=== PATIENT | male | born 1930 | race Caucasian/White ===

== ENCOUNTER 2016-10-24 10:44 | Day surgery (SDC) | payer MEDICARE, BC ==
[~2016-10-24 10:44] MED LIST: ACETAMINOPHEN 325 MG TABLET PO PRN; DEXTROSE 5%-0.5 NORMAL SALINE 1,000 ML IV PRN; MORPHINE SULFATE 2 MG/ML DISP.SYRIN IV PRN; MORPHINE SULFATE 4 MG/ML SYRG IV PRN; ONDANSETRON HCL/PF 2 MG/ML VIAL IV PRN; oxyCODONE HCL/ACETAMINOPHEN 1 TAB TABLET PO PRN
[2016-10-24] MEDS: RINGERS SOLUTION,LACTATED 1,000 ML IV PRN (11:30)
[2016-10-24] MEDS: LANOLIN/MIN OIL/PETROLAT,WHT 3.5 APPL TUBE EACHEYE ONE (12:58)
[2016-10-24] MEDS: ceFAZolin SODIUM 1 GM VIAL IV ONE (13:05)
[2016-10-24] MEDS: RINGERS SOLUTION,LACTATED 1,000 ML IV ONE (13:21)
[2016-10-24] MEDS: MUPIROCIN 22 APPL TUBE TP ONE (13:29)
[2016-10-24 15:09] VITALS: BP 159/75
== END 2016-10-24 10:45 | disposition home or self-care (01) ==
LOC: AMB 10:44 → EDSEX 10:44 → AMB 10:45
PROVIDERS: ATTEND Allergy & Immunology
PROC: 0JX Subcutaneous Tissue and Fascia, Transfer (ICD-10-PCS; principal; 2016-10-24 13:15)
DX: C44.311 Basal cell carcinoma of skin of nose (principal); I10 Essential (primary) hypertension; Z68.28 Body mass index [BMI] 28.0-28.9, adult